=== PATIENT | male | born 1990 | race Caucasian/White ===

== ENCOUNTER 2019-12-03 04:45 | Emergency (ER) | payer SELFPAY ==
[2019-12-03] MEDS ORDERED: ACETAMINOPHEN 325 MG TABLET PO ONE (05:11)
[2019-12-03 06:47] LABS: APPEARANCE,URINE CLEAR; BILIRUBIN,URINE NEGATIVE (NEGATIVE); COLOR,URINE YELLOW; GLUCOSE, URINE NEGATIVE (NEGATIVE); KETONES,URINE NEGATIVE (NEGATIVE); LEUKOCYTE ESTERASE,URINE NEGATIVE (NEGATIVE); NITRITE,URINE NEGATIVE (NEGATIVE); PROTEIN,URINE NEGATIVE (NEGATIVE); URINE SPECIFIC GRAVITY 1.015; UROBILINOGEN,URINE NEGATIVE mg/dL (<2.0)
[2019-12-03] MEDS ORDERED: MORPHINE SULFATE 10 MG/ML INJ IV ONE (11:25)
--- NOTE | 2019-12-03 11:27 | ER Document Report ---
ED GI/ - General Chief Complaint: Problem with Urinary Catheter Stated Complaint: PENILE BLEEDING Time Seen by Provider: 12/03/19 11:15 Primary Care Provider: BINTA GAUTHIER PA-C [Primary Care Provider] - Follow up as needed Notes: Patient is a 29-year-old male who presents to the emergency department with a chief complaint of penile pain with bladder discomfort. Patient was diagnosed with prostatitis yesterday. He had trouble voiding, or for had a urinary catheter placed yesterday at [facility]. Prior to the Starkey catheter being placed, he did not have urine output for 2 days. The catheter is d raining, but the patient states that he continues to have pain. He was also urinating blood. Patient is currently on antibiotics. He has been taking ibuprofen and Tylenol, but has had little relief in his pain. - Related Data Allergies/Adverse Reactions: No Known Allergies Allergy (Verified 12/03/19 05:15) Past Medical History - General Information source: Patient - Social History Smoking Status: Former Smoker Chew tobacco use (# tins/day): No Frequency of alcohol use: None Drug Abuse: None Family History: Reviewed & Not Pertinent Patient has suicidal ideation: No Patient has homicidal ideation: No Review of Systems - Review of Systems Notes: REVIEW OF SYSTEMS: CONSTITUTIONAL : Denies recent illness. Denies recent unintentional weight loss. Denies fever, chills, or sweats. EENT: Denies eye, ear, throat, or mouth pain, discharge, or symptoms. Denies nasal or sinus congestion. CARDIOVASCULAR: Denies chest pain. RESPIRATORY: Denies shortness of breath, cough, congestion, difficulty breathing, or wheezing. GASTROINTESTINAL: Denies nausea, vomiting, and diarrhea. Denies abdominal pain. Denies constipation. GENITOURINARY: See HPI. MUSCULOSKELETAL: Denies neck and back pain. Denies joint pain or swelling. SKIN: Denies rash, itchiness, or lesions HEMATOLOGIC : Denies easy bruising or bleeding. LYMPHATIC: Denies swollen, painful, enlarged glands. NEUROLOGICAL: Denies no numbness or tingling denies weakness. Denies headache. Denies altered mental status. Denies alteration in speech. PSYCHIATRIC: Denies stress, anxiety, alteration in sleep patterns, or depression. All other systems reviewed and negative. Physical Exam - Vital signs Vitals: Temp Pulse Resp BP Pulse Ox 97.5 F 84 20 150/78 H 99 12/03/19 05:07 12/03/19 05:07 12/03/19 05:07 12/03/19 05:07 12/03/19 05:07 - Notes Notes: PHYSICAL EXAMINATION: GENERAL: Appears well, healthy, well-nourished, no acute distress. HEAD: Normocephalic, atraumatic. EYES: PERRL, conjunctiva normal, all extraocular movements intact, sclera nonicteric ENT: Moist mucous membranes. NECK: Supple, no noticeable swelling, redness, rash. Normal range of motion. LUNGS: Equal breath sounds bilaterally and clear to auscultation. No wheezes rales or rhonchi. CARDIOVASCULAR: S1-S2, regular rate, regular rhythm. Radial pulses 2+, normal. ABDOMEN: Normoactive bowel sounds. Soft, mildly tender mid lower abdomen at bladder area, no guarding, no rebound tenderness, and no masses palpated. EXTREMITIES: Normal strength and range of motion, no pitting or edema. No cyanosis. NEUROLOGICAL: Moves all extremities upon command. Strength 5/5 in all extremities. PSYCH: Normal mood, normal affect. SKIN: Warm, dry. No rash, lesions, ulcerations noted. Normal skin turgor. REPRODUCTIVE: Starkey catheter in place. No gross hematuria noted. Catheter draining well. Course - Re-evaluation Re-evalutation: 12/04/19 PIETER Shaikh at bedside during physical exam. Starkey catheter draining well. No gross hematuria noted. Hematology is unremarkable. No anemia noted. Urinalysis shows a moderate amount of blood in his urine. No leukocytes or bacteria noted. I suspect that he is uncomfortable because the Starkey catheter is in. The CT showed that the patient's catheter is in the bladder. I explained to the patient that Starkey catheters are uncomfortable, especially for men. I will send him home with A[place]kin to help with his pain. He has a follow-up appointment with urology this . I advised him to make sure that he fo llows up. He is in agreement with this plan. I have a very low suspicion for any life-threatening etiology at this time. Follow-up precautions were given. Verbal discharge instructions were given to the patient. They verbalized understanding. They are stable for discharge. - Vital Signs Vital signs: Temp Pulse Resp BP Pulse Ox 97.5 F 63 18 153/68 H 97 12/03/19 13:25 12/03/19 13:25 12/03/19 13:25 12/03/19 13:25 12/03/19 13:25 - Laboratory Result Diagrams: 12/03/19 06:25 Laboratory results interpreted by me: 12/03/19 12/03/19 06:25 06:25 RDW 15.8 H Urine Blood MODERATE H Discharge - Discharge Clinical Impression: Bladder pain Hematuria Qualifiers: Hematuria type: unspecified type Qualified Code(s): R31.9 - Hematuria, unspecified Condition: Stable Disposition: HOME, SELF-CARE Additional Instructions: You were seen today in the emergency department for bladder pain. Having prostatitis and a urinary catheter in is painful. The blood in your urine is most likely due to the prostatitis. Please follow-up with urology in regards to this visit. Please continue ibuprofen 600 mg every 6 hours. You could also continue acetaminophen 650 mg every 6 hours. You are also being prescribed A[place] for your pain. Please take this for extreme pain. It will be sent electronically to your pharmacy of choice. Prescriptions: Hydrocodone/Acetaminophen [A[place]kin 5-325 mg Tablet] 1 tab PO Q6HP PRN #20 tablet PRN Reason: Forms: Return to Work Referrals: BINTA GAUTHIER PA-C [Primary Care Provider] - Follow up as needed
[2019-12-03 11:48] LABS: ABSOLUTE BASOPHILS # (AUTO) 0.1 10^3/uL (0.0-0.2); ABSOLUTE EOSINOPHILS # (AUTO) 0.4 10^3/uL (0.0-0.6); ABSOLUTE LYMPHOCYTES (AUTO) 1.4 10^3/uL (0.5-4.7); ABSOLUTE MONOCYTES (AUTO) 0.7 10^3/uL (0.1-1.4); ABSOLUTE NEUT (AUTO) 4.6 10^3/uL (1.7-8.2); BASOPHILS % (AUTO) 0.8 % (0-2); HEMATOCRIT 45.8 % (37.9-51.0); HEMOGLOBIN 15.2 g/dL (13.5-17.0); LYMPHOCYTES % (AUTO) 20.1 % (13-45); MEAN CORPUSCULAR HEMOGLOBIN 29.9 pg (27.0-33.4); MEAN CORPUSCULAR HGB CONC 33.2 g/dL (32.0-36.0); MEAN CORPUSCULAR VOLUME 90 fl (80-97); MONOCYTES % (AUTO) 9.9 % (3-13); PLATELET COUNT 352 10^3/uL (150-450); RED BLOOD COUNT 5.08 10^6/uL (4.35-5.55); RED CELL DISTRIBUTION WIDTH 15.8 % (11.5-14.0); SEGMENTED NEUTROPHILS % (AUTO) 64.2 % (42-78); TOTAL CELLS COUNTED % (AUTO) 100 %; WHITE BLOOD COUNT 7.1 10^3/uL (4.0-10.5)
--- NOTE | 2019-12-03 12:08 | RADIOLOGY REPORT (SQ) ---
EXAM DESCRIPTION: CT ABD/PELVIS NO ORAL OR IV COMPLETED DATE/TIME: 12/03/2019 11:53 am REASON FOR STUDY: eval catheter placement COMPARISON: None. TECHNIQUE: CT scan of the abdomen and pelvis performed without intravenous or oral contrast. Images reviewed with lung, soft tissue, and bone windows. Reconstructed coronal and sagittal MPR images revi ewed. All images stored on PACS. All CT scanners at this facility use dose modulation, iterative reconstruction, and/or weight based d osing when appropriate to reduce radiation dose to as low as reasonably achievable (ALARA). [facility]: Dose Right [facility]: CareDose [facility]: Dose Right [facility]: Teradose 4D [facility]: Smart [employer] RADIATION DOSE: CT Rad equipment meets quality standard of care and radiation dose reduction techniq ues were employed. CTDIvol: 9.8 mGy. DLP: 501 mGy-cm.mGy. LIMITATIONS: None. FINDINGS: LOWER CHEST: No significant findings. No nodules or infiltrates. NON-CONTRASTED LIVER, SPLEEN, ADRENALS: Evaluation limited by lack of IV contrast. No identified sign ificant masses. PANCREAS: No masses. No peripancreatic inflammatory changes. GALLBLADDER: No identified stones by CT criteria. No inflammatory changes to suggest cholecystitis. RIGHT KIDNEY AND URETER: No suspicious masses. Assessment limited by lack of IV contrast. No signif icant calcifications. No hydronephrosis or hydroureter. LEFT KIDNEY AND URETER: No suspicious masses. Assessment limited by lack of IV contrast. No signifi cant calcifications. No hydronephrosis or hydroureter. AORTA AND RETROPERITONEUM: No aneurysm. No retroperitoneal masses or adenopathy. BOWEL AND PERITONEAL CAVITY: No obvious masses or inflammatory changes. No free fluid. APPENDIX: Not visualized. PELVIS, BLADDER, AND ABDOMINAL WALL:No abnormal masses. No free fluid. Easley catheter in the bladder . The bladder is almost empty. BONES: No significant findings. OTHER: No other significant finding. IMPRESSION: EASLEY CATHETER IN THE BLADDER. THE BLADDER IS ALMOST EMPTY. NO SIGNIFICANT OR ACUTE ND OCESS IN THE ABDOMEN OR PELVIS. COMMENT: Quality ID # [id number]: Final reports with documentation of one or more dose reduction techniques (e.g., Automated exposure control, adjustment of the mA and/or kV according to patient size, use of iterative reconstruction technique) TECHNICAL DOCUMENTATION: JOB ID: [id number] [employer]- All Rights Reserved Reading location - IP/workstation name: [email or web address]
[2019-12-03 13:31] VITALS: BP 153/68
== END 2019-12-03 13:30 | disposition home or self-care (01) ==
LOC: ER 04:45
DX: R39.89 Other symptoms and signs involving the genitourinary system (principal); N48.89 Other specified disorders of penis; T83.9XXA Unspecified complication of genitourinary prosthetic device, implant and graft, initial encounter; R31.9 Hematuria, unspecified; Z87.891 Personal history of nicotine dependence
CPT/HCPCS: 99284; 96374; 36415; 85025; 81001; 74176; J2270

== ENCOUNTER 2019-12-10 05:58 | Emergency (ER) | payer SELFPAY ==
[2019-12-10] MEDS ORDERED: LIDOCAINE 2% URO-JET 5 ML KIT MM ONE (07:45)
[2019-12-10 08:56] VITALS: BP 143/82
--- NOTE | 2019-12-10 09:24 | ER Document Report ---
Entered by KAYY MARSHALL SCRIBE 12/10/19 0716 Acting as scribe for:GABE JOHNSTON MD ED General - General Chief Complaint: Urinary Retention Stated Complaint: DIFFICULTY URINATING Time Seen by Provider: 12/10/19 07:05 Primary Care Provider: BINTA GAUTHIER PA-C [Primary Care Provider] - Follow up as needed Information source: Patient Notes: 29 year old male presents to the emergency department complaining of difficulty urinating and dysuria. Patient states that he has has had difficulty urinating since this morning with his last time urinating being last night at 5PM. Patient said he was able to urinate here in the emergency department and said that "it took a little time" and was "extremely painful". Patient describes the pain as located in the glans penis, urethra, and urethral meatus. Patient reports discharge from penis and "swelling at the opening". Prior to arrival on November 22 (1/2 month ago), patient presented to [facility] for urethral discharge and was treated with Zithromax, Valtrex and a shot of rocephin. In his follow-up with Urology at [place] [facility] 2 days later (Dec 02.), patient was diagnosed with prostatitis and had a mccall catheter placed. Patient was prescribed Cipro and motrin. Patient stated that he took his prescribed medications for one day and left them at [facility]. Patient did not take prescribed medicine for 6 days until he was able to return today to [facility]. At patient's Dec 08. Urology appointment, his catheter was removed. TRAVEL OUTSIDE OF THE [place] 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[employer] Family History: Reviewed & Not Pertinent Patient has suicidal ideation: No Patient has homicidal ideation: No Renal/ Medical History: Reports: Other - Prostatitis Surgical Hx: Negative Review of Systems - Review of Systems Constitutional: No symptoms reported EENT: No symptoms reported Cardiovascular: No symptoms reported Respiratory: No symptoms reported Gastrointestinal: No symptoms reported Genitourinary: See HPI, Dysuria, Discharge, Retention, Other - Difficulty Urinating Male Genitourinary: No symptoms reported Musculoskeletal: No symptoms reported Skin: No symptoms reported Hematologic/Lymphatic: No symptoms reported Neurological/Psychological: No symptoms reported -: Yes All other systems reviewed and negative Physical Exam - Vital signs Vitals: Temp Pulse Resp BP Pulse Ox 98.6 F 100 18 150/77 H 98 12/10/19 06:02 12/10/19 06:02 12/10/19 06:02 12/10/19 06:02 12/10/19 06:02 Interpretation: Normal - General General appearance: Appears well, Alert - HEENT Head: Normocephalic, Atraumatic Eyes: Normal Pupils: PERRL - Respiratory Respiratory status: No respiratory distress Chest status: Nontender Breath sounds: Normal Chest palpation: Normal - Cardiovascular Rhythm: Regular Heart sounds: Normal auscultation Murmur: No - Abdominal Inspection: Normal Distension: No distension Bowel sounds: Normal Tenderness: Nontender Organomegaly: No organomegaly - Genitourinary Notes: The distal aspect of the glans penis is erythematous. The urethra meatus is very slightly edematous and a little inflamed. No ulcers. The erythematous tip of the penis and the tissue going into the urethral meatus is all very tender to palpate. The distal ventral shaft of the penis has a line of scabs. There are no blisters or ulcerations. There is no inguinal adenopathy. The patient states that he does not know if there ever were any blisters or ulcerations in that area. - Back Back: Normal, Nontender - Extremities General upper extremity: Normal inspection, Nontender, Normal color, Normal ROM, Normal temperature General lower extremity: Normal inspection, Nontender, Normal color, Normal ROM, Normal temperature, Normal weight bearing. No: Gray's sign - Neurological Neuro grossly intact: Yes Cognition: Normal Orientation: AAOx4 Clayton Coma Scale Eye Opening: Spontaneous Daina Coma Scale Verbal: Oriented Clayton Coma Scale Motor: Obeys Commands Daina Coma Scale Total: 15 Speech: Normal Motor strength normal: LUE, RUE, LLE, RLE Sensory: Normal - Psychological Associated symptoms: Normal affect, Normal mood - Skin Skin Temperature: Warm Skin Moisture: Dry Skin Color: Normal Course - Re-evaluation Re-evalutation: 12/10/19 08:34 Lidocaine jelly was placed on the tip of the glans penis and eighth small amount instilled into the urethral meatus. This provided complete resolution of his discomfort. He will be discharged with these Urojet lidocaine to use if needed. He will receive a prescription for lidocaine jelly and a tube to apply to the tip of the penis and into the urethral meatus to facilitate in urinating. He is to use the Urojet introducer only if needed to facilitate urination. I could not come up with a solution to putting more lidocaine into the Urojet apparatus so we will be used only if absolutely necessary. He is to drink lots of fluids to help flush the bladder and urethra. We will reissue prescriptions for the Cipro and Valtrex that he left in [place]. He is to follow-up with his urology on Thursday for recheck. He did report that he continues to have a foul-smelling discharge, unfortunately he went into the bathroom and urinated into the toilet and flush that prior to being seen. - Vital Signs Vital signs: Temp Pulse Resp BP Pulse Ox 97.6 F 76 16 143/82 H 99 12/10/19 08:56 12/10/19 08:56 12/10/19 08:56 12/10/19 08:56 12/10/19 08:56 Discharge - Discharge Clinical Impression: Urethritis Condition: Stable Disposition: HOME, SELF-CARE Additional Instructions: Apply a small amount of the lidocaine jelly to the tip of the penis and into the urethral meatus as needed to facilitate urinating. Drink lots of fluids throughout the day in the evening so that you are frequently having to empty your bladder. Take the medications as prescribed. Follow-up with your urologist on Thursday for recheck of your symptoms. RETURN TO THE EMERGENCY ROOM IF ANY NEW OR WORSENING SYMPTOMS. Prescriptions: Ciprofloxacin HCl [Cipro 500 mg Tablet] 500 mg PO BID #14 tablet Lidocaine Jelly 2% 1 drp TOP ASDIR PRN #30 ml PRN Reason: Valacyclovir HCl [Valtrex 500 Mg Tablet] 2 tab PO BID #20 tablet Referrals: BINTA GAUTHIER PA-C [Primary Care Provider] - Follow up as needed Scribe Attestation: 12/10/19 08:37 I personally performed the services described in the documentation, reviewed and edited the documentation which was dictated to the scribe in my presence, and it accurately records my words and actions. I personally performed the services described in the documentation, reviewed and edited the documentation which was dictated to the scribe in my presence, and it accurately records my words and actions.
== END 2019-12-10 08:58 | disposition home or self-care (01) ==
LOC: ER 05:58
DX: N34.2 Other urethritis (principal); R33.9 Retention of urine, unspecified; R30.0 Dysuria; Z79.899 Other long term (current) drug therapy
CPT/HCPCS: 99283; J3490